=== PATIENT | male | born 1990 | race African-American/Black ===

== ENCOUNTER 2024-11-29 18:36 | Emergency (ER) | payer OTHER ==
[~2024-11-29] VITALS: Ht 188 cm; Wt 73.0 kg
[2024-11-29 18:47] VITALS: O2SAT 97
[2024-11-29 20:39] VITALS: BP 118/78; PULSE 74; RESP 18; TEMP 36.6; O2SAT 97
[2024-11-29] MEDS ORDERED: IBUP1TAB11 MT (20:41)
[2024-11-29] MEDS ORDERED: BENZ200C52 MT (20:41)
[2024-11-29] MEDS ORDERED: ALBU18HF2 IH (20:41)
== END 2024-11-29 20:54 | disposition home or self-care (01) ==
LOC: ER 18:36
DX: J06.9 Acute upper respiratory infection, unspecified (principal)
CPT/HCPCS: 99283